=== PATIENT | female | born 1990 | race Caucasian/White ===

== ENCOUNTER 2022-02-24 23:48 | Inpatient (IN) | payer BC ==
[2022-02-25 00:20] VITALS: BMI 25.0
[2022-02-25] MEDS ORDERED: Ondansetron PF 4 MG/2 ML Vial IVP PRN ×3 (00:25→07:38)
[2022-02-25] MEDS ORDERED: Lidocaine 1% (PF) 30 ML VIAL SC PRN (00:25)
[2022-02-25] MEDS ORDERED: Ibuprofen 800 MG TAB PO PRN (00:25)
[2022-02-25] MEDS ORDERED: HYDROcodone/Acetaminophen 5/325 mg Tablet PO PRN ×2 (00:25→07:38)
[2022-02-25] MEDS ORDERED: Butorphanol Tartrate 1 MG/ML VIAL SLOW IVP PRN (00:25)
[2022-02-25] MEDS ORDERED: Promethazine HCl 25 MG/ML VIAL IM PRN ×3 (00:25→07:38)
[2022-02-25] MEDS ORDERED: hydrALAZINE 20 MG/ML VIAL SLOW IVP PRN ×2 (00:25→07:38)
[2022-02-25] MEDS ORDERED: Lactated Ringer's 1,000 ML IV SCH (00:30)
[2022-02-25 00:40] LABS: Hemoglobin 13.1 g/dL (12.0-15.5); Mean Corpuscular HGB CONC 34.1 g/dL (32.0-36.0); Mean Corpuscular Hemoglobin 30.1 pg (27.0-33.0); Mean Corpuscular Volume 88.3 fl (81.6-98.3); Mean Platelet Volume 10.5 fl (7.4-10.4); Platelet Count 204 10x3/uL (150-450); RBC Distribution Width 12.9 % (11.5-14.5); Red Blood Cell (RBC) Count 4.35 10x6/uL (3.90-5.03)
[2022-02-25] MEDS ORDERED: Fentanyl 2 mcg/Bup 0.1% Cadd 100 ML ONE (00:47)
[2022-02-25] MEDS: Lactated Ringer's 1,000 ML IV SCH ×2 (00:49→01:57)
[2022-02-25] MEDS: NS w/ Oxytocin 30 units 500 ML IV SCH ×2 (00:50→05:35)
[2022-02-25 01:12] LABS: Syphilis Antibody Nonreactive (Nonreactive); Syphilis Antibody Index 0.05 S/CO (<1.00 Non-Reactive)
[2022-02-25 01:13] LABS: Hep B Surf Ag Non-Reactive S/CO (NonReactive)
[2022-02-25 01:22] LABS: HBSAg Index 0.17 S/CO (0-0.99)
[2022-02-25] MEDS ORDERED: Naloxone HCl 0.4 mg/ml Vial IVP PRN ×2 (01:22)
[2022-02-25] MEDS ORDERED: Acetaminophen 325 MG TAB PO PRN (01:22)
[2022-02-25] MEDS ORDERED: Lactated Ringer's 500 ML IV PRN (01:22)
[2022-02-25] MEDS ORDERED: ePHEDrine Sulfate 50 MG/10 ML VIAL SLOW IVP PRN (01:22)
[2022-02-25] MEDS ORDERED: Moisturizing Cream (Eucerin) 113 GM JAR TOP PRN (01:22)
[2022-02-25] MEDS ORDERED: diphenhydrAMINE 50 MG/ML VIAL IVP PRN (01:22)
[2022-02-25] MEDS ORDERED: Fentanyl 2 mcg/Bupivacaine 0.1% Cassette 100 ML EPIDURAL SCH (01:30)
[2022-02-25] MEDS ORDERED: Communication Order-Pharmacy FS SCH (01:30)
[2022-02-25 02:11] LABS: SARS-CoV-2 NAA Rapid Test Not Detected (NotDetected)
[2022-02-25 02:29] LABS: HIV (1/2) Antibody/Antigen Non-Reactive (NonReactive); HIV 1/2 INDEX 0.07 S/CO (<1.00)
[2022-02-25] MEDS ORDERED: Misoprostol 200 MCG TAB VAG PRN (07:38)
[2022-02-25] MEDS ORDERED: Milk Of Magnesia 30 ML UDCUP PO PRN (07:38)
[2022-02-25] MEDS ORDERED: NS w/ Oxytocin 30 units 500 ML IV SCH (07:38)
[2022-02-25] MEDS ORDERED: Zolpidem Tartrate 5 MG TAB PO PRN (07:38)
[2022-02-25] MEDS ORDERED: Benzocaine-Menthol 82.5 ML CAN TOP PRN (07:38)
[2022-02-25] MEDS ORDERED: Lanolin Ointment 7 GM TUBE TOP PRN (07:38)
[2022-02-25] MEDS ORDERED: Bisacodyl 10 MG SUPP PR PRN (07:38)
[2022-02-25] MEDS ORDERED: diphenhydrAMINE 25 MG CAP PO PRN (07:38)
[2022-02-25] MEDS ORDERED: Preparation H Ointment 28 GM TUBE PR PRN (07:38)
[2022-02-25] MEDS ORDERED: Bupivacaine/Epinephrine 0.25% 30 ML VIAL ONE (08:00)
[2022-02-25] MEDS: Docusate 100 MG CAP PO SCH ×2 (12:13→21:16)
[2022-02-25] MEDS: Ferrous Sulfate 325 MG TAB PO SCH ×2 (12:13→19:20)
[2022-02-25] MEDS: Prenatal Vitamin 1 TAB PO SCH (12:14)
[2022-02-25] MEDS: Ibuprofen 800 MG TAB PO SCH ×3 (13:50→21:16)
[2022-02-26 05:06] LABS: Hemoglobin 12.1 g/dL (12.0-15.5); Mean Corpuscular HGB CONC 35.2 g/dL (32.0-36.0); Mean Corpuscular Hemoglobin 30.9 pg (27.0-33.0); Mean Corpuscular Volume 87.8 fl (81.6-98.3); Mean Platelet Volume 10.5 fl (7.4-10.4); Platelet Count 173 10x3/uL (150-450); RBC Distribution Width 13.5 % (11.5-14.5); Red Blood Cell (RBC) Count 3.92 10x6/uL (3.90-5.03); White Blood Cell (WBC) Count 9.7 10x3/uL (3.5-10.5)
[2022-02-26] MEDS: Ibuprofen 800 MG TAB PO SCH (06:08)
[2022-02-26] MEDS ORDERED: Boostrix 0.5 ML (Tdap) VIAL IM ONE (07:38)
[2022-02-26] MEDS ORDERED: Measles/Mumps/Rubella 10 MCG/0.5 ML VIAL SC ONE (07:38)
[2022-02-26] MEDS: Ferrous Sulfate 325 MG TAB PO SCH (10:41)
[2022-02-26] MEDS: Docusate 100 MG CAP PO SCH (11:43)
[2022-02-26] MEDS: Prenatal Vitamin 1 TAB PO SCH (11:43)
[2022-02-26 11:52] VITALS: BP 97/52; TEMP 98.1
[2022-03-01] MEDS ORDERED: Varicella virus, LIVE 0.5 ML VIAL SC ONE (07:38)
== END 2022-02-26 13:40 | disposition home or self-care (01) | DRG 807 ==
LOC: CSHLD/OP 23:48 → CSHLD 02-25 00:22 → CSHPP 02-25 17:10
PROVIDERS: ADMIT Obstetrics & Gynecology; ATTEND Obstetrics & Gynecology
PROC: 10D07Z6 Extraction of Products of Conception, Vacuum, Via Natural or Artificial Opening (ICD-10-PCS; principal; 2022-02-25)
DX: O9A.12 Malignant neoplasm complicating childbirth (principal); Z37.0 Single live birth; Z3A.38 38 weeks gestation of pregnancy; Z20.822 Contact with and (suspected) exposure to COVID-19; O76 Abnormality in fetal heart rate and rhythm complicating labor and delivery; C44.91 Basal cell carcinoma of skin, unspecified; Z79.899 Other long term (current) drug therapy; Z87.891 Personal history of nicotine dependence
CPT/HCPCS: 36415; 85027; 86780; 86850; 86900; 86901; 87340; 87389; 99285; J2590; J7120; U0002